=== PATIENT | male | born 1930 | race African-American/Black ===

== ENCOUNTER 2018-01-15 13:57 | Emergency (ER) | payer MEDICARE ==
[~2018-01-15] VITALS: Ht 177.8 cm; Wt 91.0 kg
[~2018-01-15 13:57] MED LIST: FURO-151 PO; P20 PO; PRED10TA PO; TAMS0.4C31 PO; WARF5TAB76 PO; albuterol inhaler IH
[2018-01-15] MEDS ORDERED: APIX5TAB PO (14:28)
[2018-01-15] MEDS ORDERED: DONE23TA3 MT (14:29)
[2018-01-15] MEDS ORDERED: MIRA25TA PO (14:30)
[2018-01-15] MEDS ORDERED: GABA-529 PO (14:30)
[2018-01-15] MEDS ORDERED: PRIM50TA31 PO (14:30)
[2018-01-15 15:42] LABS: HEMATOCRIT. 38.5 % (42.0-52.0); HEMOGLOBIN. 12.9 g/dL (14.0-18.0); MEAN CORPUSCULAR HEMOGLOBIN 29.6 pg (28.0-32.0); MEAN CORPUSCULAR VOLUME 88.7 fL (80.0-94.0); MEAN PLATELET VOLUME 11.3 fl (7.4-10.4); PLATELET 96 x1000/uL (130-400); RED BLOOD CELL COUNT 4.34 mill/uL (4.7-6.1); RED CELL DISTRIBUTION WIDTH 14.5 % (11.6-14.6)
[2018-01-15 15:46] LABS: CHLORIDE 106 mEq/L (98-107)
[2018-01-15 15:49] LABS: D-DIMER 2.41 mg/L FEU (<0.50); INR 1.1; PROTHROMBIN TIME 11.4 sec (9.4-11.6)
[2018-01-15 16:20] LABS: PLATELET ESTIMATE DECREASED
[2018-01-15 18:26] VITALS: BP 162/98
== END 2018-01-15 18:34 | disposition home or self-care (01) ==
LOC: ER 13:57
DX: R60.0 Localized edema (principal); D61.818 Other pancytopenia; E11.9 Type 2 diabetes mellitus without complications; I10 Essential (primary) hypertension; Z87.891 Personal history of nicotine dependence; Z79.899 Other long term (current) drug therapy; Z86.718 Personal history of other venous thrombosis and embolism
CPT/HCPCS: 36415; 70450; 71045; 80053; 83605; 83690; 83880; 84484; 85025; 85379; 85610; 87040; 93005; 93970; 99285

== ENCOUNTER 2018-02-11 18:21 | Inpatient (IN) | payer MEDICARE ==
[~2018-02-11] VITALS: Ht 177.8 cm; Wt 108.9 kg
[~2018-02-11 18:21] MED LIST changes: +APIX5TAB PO; +DONE23TA3 MT; +GABA-529 PO; +MIRA25TA PO; +PRIM50TA31 PO
[2018-02-11] MEDS ORDERED: SODIUM CHLORIDE 0.9% 1,000 ML IV ONE (19:19)
[2018-02-11 19:39] LABS: HEMATOCRIT. 43.7 % (42.0-52.0); HEMOGLOBIN. 14.4 g/dL (14.0-18.0); MEAN CORPUSCULAR HEMOGLOBIN 29.5 pg (28.0-32.0); MEAN CORPUSCULAR VOLUME 89.7 fL (80.0-94.0); RED BLOOD CELL COUNT 4.87 mill/uL (4.7-6.1); RED CELL DISTRIBUTION WIDTH 14.9 % (11.6-14.6)
[2018-02-11 19:42] LABS: CHLORIDE 105 mEq/L (98-107)
[2018-02-11 19:43] LABS: INR 1.2; PROTHROMBIN TIME 11.7 sec (9.1-11.1)
[2018-02-11 20:04] LABS: MEAN PLATELET VOLUME 12.2 fl (7.4-10.4); PLATELET 83 x1000/uL (130-400)
[2018-02-11 20:05] LABS: PLATELET ESTIMATE DECREASED
[2018-02-11 21:26] LABS: CLARITY URINE CLEAR (CLEAR); COLOR URINE DARK YELLOW (YELLOW); KETONES URINE NEGATIVE (NEGATIVE); LEUKOCYTE ESTERASE URINE TRACE (NEGATIVE); NITRITE URINE NEGATIVE (NEGATIVE); OCCULT BLOOD URINE 1+ (NEGATIVE); PROTEIN URINE 1+ (NEGATIVE); SPECIFIC GRAVITY URINE 1.024 (1.005-1.030)
[2018-02-12] VITALS (7 sets, daily range): BP systolic 117–155; BP diastolic 63–80
[2018-02-12] MEDS ORDERED: DEXT 5%/0.45% NACL 500ML 1,000 ML IV SCH (02:00)
[2018-02-12] MEDS ORDERED: ACETAMINOPHEN 325MG TABLET PO PRN (07:45)
[2018-02-12] MEDS ORDERED: ONDANSETRON HCL 4MG/2ML VIAL IV PRN (07:45)
[2018-02-12] MEDS ORDERED: DOCUSATE SODIUM 100MG CAPSULE PO PRN (07:45)
[2018-02-12] MEDS: CEFEPIME 1,000 MG in DEXTROSE 5% WATER 50 ML IV SCH ×2 (08:50→20:29)
[2018-02-12] MEDS ORDERED: CEFEPIME HCL 1000MG/VIAL INJ IM SCH (09:00)
[2018-02-12 09:24] LABS: CHLORIDE 109 mEq/L (98-107)
[2018-02-12 09:43] LABS: BASOPHILS % 0.1 % (0.0-2.0); EOSINOPHILS % 0.1 % (0.0-5.0); HEMOGLOBIN. 13.1 g/dL (14.0-18.0); LYMPHOCYTES % 11.1 % (20.0-50.0); MEAN CORPUSCULAR HEMOGLOBIN 29.9 pg (28.0-32.0); MEAN PLATELET VOLUME 12.7 fl (7.4-10.4); MONOCYTES % 11.5 % (2.0-8.0); NEUTROPHILS % 77.2 % (40.0-76.0); PLATELET 78 x1000/uL (130-400); RED BLOOD CELL COUNT 4.38 mill/uL (4.7-6.1); RED CELL DISTRIBUTION WIDTH 15.2 % (11.6-14.6)
[2018-02-12] MEDS: PRIMIDONE 50MG TABLET PO SCH ×2 (13:00→16:35)
[2018-02-12] MEDS: TAMSULOSIN HCL 0.4MG SR CAPSULE PO SCH ×2 (13:00→16:35)
[2018-02-12] MEDS: IPRATROPIUM/ALBUTEROL 0.5-3(2.5)MG/3ML NEB INH SCH ×2 (16:02→20:23)
[2018-02-12] MEDS: APIXABAN 5 MG TABLET PO SCH (16:35)
[2018-02-12] MEDS: DONEPEZIL HCL 10MG TABLET PO SCH (20:29)
[2018-02-12] MEDS ORDERED: MEDICATION NOT ON FORMULARY EA (Donepezil HCl 1 TAB) MT SCH (21:00)
[2018-02-13] VITALS: BP 122/63
[2018-02-13] MEDS: IPRATROPIUM/ALBUTEROL 0.5-3(2.5)MG/3ML NEB INH SCH ×5 (02:12→20:38)
[2018-02-13 07:31] LABS: HEMATOCRIT 37.1 % (42.0-52.0); HEMOGLOBIN 12.5 g/dL (14.0-18.0); MEAN CORPUSCULAR HEMOGLOBIN 29.9 pg (28.0-32.0); RED BLOOD CELL COUNT 4.17 mill/uL (4.7-6.1); RED CELL DISTRIBUTION WIDTH 15.3 % (11.6-14.6)
[2018-02-13 07:56] LABS: CHLORIDE 110 mEq/L (98-107)
[2018-02-13] MEDS: CEFEPIME 1,000 MG in DEXTROSE 5% WATER 50 ML IV SCH ×2 (08:34→21:58)
[2018-02-13] MEDS: APIXABAN 5 MG TABLET PO SCH ×2 (08:34→17:41)
[2018-02-13] MEDS: TAMSULOSIN HCL 0.4MG SR CAPSULE PO SCH (08:35)
[2018-02-13] MEDS: PRIMIDONE 50MG TABLET PO SCH (08:36)
[2018-02-13] MEDS ORDERED: POTASSIUM CHLORIDE 20MEQ TABLET SR PO NR (11:30)
[2018-02-13 12:00] VITALS: BP 145/68
[2018-02-13 12:01] LABS: PLATELET 77 x1000/uL (130-400)
[2018-02-13 16:00] VITALS: BP 130/67
[2018-02-13 20:01] VITALS: BP 135/79
[2018-02-13] MEDS: DONEPEZIL HCL 10MG TABLET PO SCH (21:58)
[2018-02-14] VITALS: BP 128/69
[2018-02-14] MEDS: IPRATROPIUM/ALBUTEROL 0.5-3(2.5)MG/3ML NEB INH SCH ×4 (02:26→20:30)
[2018-02-14 04:00] VITALS: BP 125/60
[2018-02-14 07:27] LABS: HEMATOCRIT 36.4 % (42.0-52.0); HEMOGLOBIN 12.2 g/dL (14.0-18.0); MEAN CORPUSCULAR HEMOGLOBIN 29.7 pg (28.0-32.0); MEAN CORPUSCULAR VOLUME 88.5 fL (80.0-94.0); PLATELET 86 x1000/uL (130-400); RED BLOOD CELL COUNT 4.11 mill/uL (4.7-6.1); RED CELL DISTRIBUTION WIDTH 14.9 % (11.6-14.6)
[2018-02-14 08:00] VITALS: BP 124/62
[2018-02-14 08:08] LABS: CHLORIDE 109 mEq/L (98-107)
[2018-02-14] MEDS: APIXABAN 5 MG TABLET PO SCH ×2 (08:56→17:08)
[2018-02-14] MEDS: TAMSULOSIN HCL 0.4MG SR CAPSULE PO SCH (08:59)
[2018-02-14] MEDS: CEFEPIME 1,000 MG in DEXTROSE 5% WATER 50 ML IV SCH (08:59)
[2018-02-14 12:00] VITALS: BP 128/71
[2018-02-14 13:56] LABS: BG BASE EXCESS 1.6 mmol/L (-2.0-2.0); BG CARBOXYHEMOGLOBIN 1.3 % (0.5-1.5); BG DEOXYHEMOGLOBIN 7.7 % (0.0-5.0); BG FRACTION INSPIRED OXYGEN 21; BG HCO3 ACT 25.6 mmol/L (22.0-26.0); BG METHEMOGLOBIN 0.2 % (0.0-1.5); BG OXYGEN SATURATION 92.2 % (92.0-98.5); BG OXYHEMOGLOBIN 90.8 % (94.0-97.0); BG PCO2 38.1 mmHg (35.0-45.0); BG PH 7.445 (7.350-7.450); BG PO2 62.7 mmHg (75.0-100.0); BG SAMPLE SITE RIGHT BRACHIAL; BG TOTAL HEMOGLOBIN 13.2 g/dL (12.0-18.0); BG VENT MODE ROOM AIR
[2018-02-14 16:00] VITALS: BP 138/82
[2018-02-14] MEDS ORDERED: IOHEXOL-350 100 ML BOTTLE ONE (17:43)
[2018-02-14 20:00] VITALS: BP 146/59
[2018-02-14] MEDS: DONEPEZIL HCL 10MG TABLET PO SCH (21:00)
[2018-02-14] MEDS: PIPERACILLIN/TAZ 3.375G PREMIX 50 ML IV SCH (21:51)
[2018-02-15] VITALS: BP 146/60
[2018-02-15] MEDS: IPRATROPIUM/ALBUTEROL 0.5-3(2.5)MG/3ML NEB INH SCH ×3 (01:18→20:00)
[2018-02-15 06:00] VITALS: BP 140/77
[2018-02-15 06:56] LABS: HEMATOCRIT 37.7 % (42.0-52.0); HEMOGLOBIN 12.7 g/dL (14.0-18.0); MEAN CORPUSCULAR HEMOGLOBIN 30.1 pg (28.0-32.0); MEAN CORPUSCULAR VOLUME 89.4 fL (80.0-94.0); PLATELET 91 x1000/uL (130-400); RED BLOOD CELL COUNT 4.21 mill/uL (4.7-6.1); RED CELL DISTRIBUTION WIDTH 14.3 % (11.6-14.6)
[2018-02-15] MEDS: PIPERACILLIN/TAZ 3.375G PREMIX 50 ML IV SCH ×3 (06:56→22:18)
[2018-02-15 07:07] LABS: CHLORIDE 108 mEq/L (98-107)
[2018-02-15] MEDS: APIXABAN 5 MG TABLET PO SCH ×2 (09:00→17:00)
[2018-02-15] MEDS: TAMSULOSIN HCL 0.4MG SR CAPSULE PO SCH (09:00)
[2018-02-15 12:00] VITALS: BP 129/75
[2018-02-15 20:00] VITALS: BP 148/80
[2018-02-15] MEDS: DONEPEZIL HCL 10MG TABLET PO SCH (20:27)
[2018-02-16] VITALS: BP_SYST 100; BP_SYST 135; BP_DIAS 62; BP_DIAS 74
[2018-02-16] MEDS: IPRATROPIUM/ALBUTEROL 0.5-3(2.5)MG/3ML NEB INH SCH ×3 (02:04→14:15)
[2018-02-16 04:00] VITALS: BP 136/77
[2018-02-16] MEDS: PIPERACILLIN/TAZ 3.375G PREMIX 50 ML IV SCH ×2 (05:45→16:09)
[2018-02-16 06:43] LABS: BASOPHILS % 0.3 % (0.0-2.0); EOSINOPHILS % 1.1 % (0.0-5.0); HEMATOCRIT. 36.5 % (42.0-52.0); HEMOGLOBIN. 12.3 g/dL (14.0-18.0); LYMPHOCYTES % 11.2 % (20.0-50.0); MEAN CORPUSCULAR HEMOGLOBIN 29.9 pg (28.0-32.0); MEAN CORPUSCULAR VOLUME 88.5 fL (80.0-94.0); MEAN PLATELET VOLUME 12.3 fl (7.4-10.4); MONOCYTES % 14.3 % (2.0-8.0); NEUTROPHILS % 73.1 % (40.0-76.0); PLATELET 105 x1000/uL (130-400); RED BLOOD CELL COUNT 4.13 mill/uL (4.7-6.1); RED CELL DISTRIBUTION WIDTH 14.6 % (11.6-14.6)
[2018-02-16 06:56] LABS: CHLORIDE 108 mEq/L (98-107)
[2018-02-16] MEDS: TAMSULOSIN HCL 0.4MG SR CAPSULE PO SCH (10:34)
[2018-02-16] MEDS: APIXABAN 5 MG TABLET PO SCH (10:35)
[2018-02-16 12:00] VITALS: BP 147/62
[2018-02-16 16:00] VITALS: BP 143/74
[2018-02-16 16:42] VITALS: BP 143/74
== END 2018-02-16 17:40 | disposition home health service (06) | DRG 444 ==
LOC: ER 18:21 → 8WST 21:53 → OBSVTOIN 21:53 → INTOOBSV 21:53 → EDBEDREQTM 21:56 → EDBEDREQSVC 21:56 → EDBEDREQ 21:56 → ENRESERV 22:21
PROVIDERS: ADMIT Internal Medicine; ATTEND Internal Medicine
PROC: CF251ZZ Tomographic (Tomo) Nuclear Medicine Imaging of Liver using Technetium 99m (Tc-99m) (ICD-10-PCS; principal; 2018-02-15)
DX: K80.00 Calculus of gallbladder with acute cholecystitis without obstruction (principal); G93.41 Metabolic encephalopathy; D68.59 Other primary thrombophilia; N39.0 Urinary tract infection, site not specified; J98.11 Atelectasis; D69.6 Thrombocytopenia, unspecified; E11.65 Type 2 diabetes mellitus with hyperglycemia; E86.0 Dehydration; R62.7 Adult failure to thrive; I10 Essential (primary) hypertension; E66.9 Obesity, unspecified; R26.2 Difficulty in walking, not elsewhere classified; F03.90 Unspecified dementia, unspecified severity, without behavioral disturbance, psychotic disturbance, mood disturbance, and anxiety; N40.0 Benign prostatic hyperplasia without lower urinary tract symptoms; Z79.01 Long term (current) use of anticoagulants; Z86.711 Personal history of pulmonary embolism; Z86.718 Personal history of other venous thrombosis and embolism; Z68.34 Body mass index [BMI] 34.0-34.9, adult
CPT/HCPCS: 36415; 36600; 70450; 71045; 71275; 74018; 76700; 78227; 80048; 80053; 80061; 80076; 81003; 82375; 82805; 82962; 83036; 83605; 83690; 84145; 84153; 84443; 84484; 85025; 85027; 85049; 85379; 85610; 86803; 87040; 87086; 93005; 93306; 93970; 94640; 97110; 97162; 97530; A9537; J0692; J2405; J2543; J7030; J7060; J7620; Q9967; G0103